=== PATIENT | male | born 1965 | race Caucasian/White ===

== ENCOUNTER 2018-05-14 17:00 | Inpatient (IN) ==
[2018-05-14] MEDS ORDERED: Sodium Chloride 0.9% 1,000 ML PRIMARY IV ONE ×2 (17:35→20:26)
[2018-05-14] MEDS ORDERED: ONDANSETRON 4 MG/2 ML VIAL IVP ONE (17:35)
[2018-05-14] MEDS ORDERED: HYDROmorphone 2 MG/1 ML IVP ONE (17:37)
[2018-05-14 17:42] LABS: BASOPHILS # (AUTO) 0.02 10*3/UL; BASOPHILS % (AUTO) 0.1 % (0-1); EOSINOPHILS # (AUTO) 0.03 10*3/UL; EOSINOPHILS % (AUTO) 0.2 % (0-8); Hematocrit [HCT] 42.5 % (42.0-52.0); Hemoglobin [HGB] 15.6 g/dL (14.0-18.0); LYMPHOCYTES # (AUTO) 1.27 10*3/uL; MEAN CORPUSCULAR HEMOGLOBIN 29.9 PG (27-31); MEAN CORPUSCULAR HGB CONC 36.7 g/dL (33-37); MEAN CORPUSCULAR VOLUME 81.6 FL (80-90); MEAN PLATELET VOLUME 10.6 FL (7.4-12.2); MONOCYTES # (AUTO) 1.81 10*3/UL (0.3-0.8); MONOCYTES % (AUTO) 9.8 % (5-15); NEUTROPHILS # (AUTO) 15.36 10*3/UL; NEUTROPHILS % (AUTO) 82.7 % (50-80); RED BLOOD COUNT 5.21 10^6/uL (4.70-6.10)
[2018-05-14 17:48] LABS: BLOOD UREA NITROGEN 20 mg/dL (7-22); LIPASE 849 IU/L (23-300); SERUM ALBUMIN 4.5 g/dL (3.5-4.8)
[2018-05-14 17:49] LABS: PLATELET MORPHOLOGY COMMENT NORMAL MORPHOLOGY (NORM); RBC MORPHOLOGY COMMENT NORMAL MORPHOLOGY (NORM); WBC MORPHOLOGY COMMENT NORMAL MORPHOLOGY (NORM)
--- NOTE | 2018-05-14 18:22 | EKG ---
[address] [address] Measurements Intervals [place] Rate: 85 P: 27 RI: 178 QRS: 3 QRSD: 125 T: 34 QT: 359 QTc: 401 Interpretive Statements SINUS RHYTHM RIGHT BUNDLE BRANCH BLOCK [120+ ms QRS DURATION, UPRIGHT V1, 40+ ms S IN I/aVL/V4/V5/V6] No previous ECG available for comparison Electronically Signed On 05-15-18 11:00:47 MDT by Cortes Thomas MD [email or web address]
[2018-05-14 18:28] LABS: VENOUS PH 7.37 (7.32-7.42)
--- NOTE | 2018-05-14 18:43 | DI ---
CT ABDOMEN SCAN WITH IV CONTRAST, 05/14/2018 5:36 PM : Clinical History: Abdominal pain. Previous Exam: None at this facility. IV Contrast: 75 mL of Isovue 300. Oral Contrast: No oral contrast ordered. Rectal Contrast: No rectal contrast ordered. Lungs: No infiltrate or effusion. Liver: Diffuse low-density in the liver consistent with fatty infiltration. Gallbladder: Grossly normal. Adrenal Glands: Normal. Spleen: Normal. Pancreas: There is moderate disproportional enlargement of the head of the pancreas compared to the n alexys, body, and tail. In addition, there is peripancreatic subtle inflammatory/infiltrative change in the region of the head. The remainder of the pancreas shows no similar inflammatory/infiltrative wiggins ge. Overall, the pancreas shows diffuse fatty infiltration. The duodenum also appears slightly inflam ed. The differential would be between focal acute pancreatitis involving the head versus a process in the duodenum that is secondarily involving the head of the pancreas. Kidneys: Normal size, shape, position and contour. 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 No right hydronephrosis or hydroureter. No renal or ure teral calculi. Masses: None. Lymph Nodes: Normal. Ascites: No ascites. Free Air: None. Spine: Degenerative changes of the lower thoracic and lumbar spine without evidence of metastatic dis ease. READIN. Subtle focal enlargement of the pancreatic head with peripancreatic inflammatory/infiltrative [place] nge confined to this area only. There is diffuse fatty infiltration of the pancreas. The area of the duodenum associated with the pancreatic head shows some similar inflammatory/infiltrative change. The differential would be first that this patient has focal pancreatitis with reactive change involving the duodenum. The second choice would be there is an inflammatory process in the duodenum such as an ulcer that is causing focal pancreatitis. This should be correlated with laboratory values. 2. Fatty infiltration of the liver. CT PELVIS SCAN WITH IV CONTRAST, 05/14/2018 5:36 PM: Clinical History: See above. Previous Exam: None at this facility. Contrast: Same bolus used for CT scans of the abdomen. Masses: No masses or enhancing lesions. Ascites: None. Free Air: None. Lymph Nodes: No adenopathy. Appendix: Normal. Small Bowel: Normal small bowel, terminal ileum, and ileocecal valve. Colon: Normal. Bladder: Normal. Hernias: None. Bony Pelvis: Sacrum, pelvic bones, and hips show degenerative arthritic change without evidence of me tastatic disease. READING: Normal CT scan of the pelvis with IV contrast.
--- NOTE | 2018-05-14 19:04 | PDOC ---
Abdomen/Flank HPI - General Chief Complaint: Abdomen Pain Stated Complaint: abd pain Date Seen by Provider: 05/14/18 Time Seen by Provider: 17:25 Source: POSITIVE: Patient, Spouse Exam Limitations: POSITIVE: No limitations Nurse's Notes Reviewed & Considered: Yes - History of Present Illness Initial Comments: The patient is a 52-year-old male. He presents to the emergency room with a 30 hour history of upper abdominal pain radiating into his back. He states he's not had a bowel movement in over 24 hours. He complains of nausea and "dry heaves ". He states he onset was fairly abrupt. No diarrhea, melena, hematochezia, hematemesis, dysuria or hematuria. He has no history of previous abdominal surgery. He takes atorvastatin for hypercholesterolemia and metformin for diabetes and lisinopril for hypertension. No known fevers or chills Body Location Affected: REPORTS: Abdomen Timing: REPORTS: Abrupt, Getting Worse Duration: >24 hours (30 hours) Severity: Moderate Quality: REPORTS: "Pain" Abdominal Pain Onset Location: REPORTS: RUQ, LUQ, Epigastric Abdominal Pain Radiation: REPORTS: Back Context: REPORTS: None Modifying Factors: improves with: Nothing Associated Symptoms: REPORTS: Back pain, Vomiting Similar Symptoms Previously: No Recent Care Received: REPORTS: Denies Any Prior Injuries Related to Current Complaint?: No - Patient Home Medications Home Medications: Home Medications Lisinopril 1 tab PO DAILY #30 tab 03/21/15 Blood Sugar Diagnostic [Blood Glucose Test Strip] 1 ea MC BID #1 box 03/22/15 Blood-Glucose Meter [Blood Glucose Meter] 1 ea MC ONCE #1 ea 03/22/15 Lancets 1 ea MC BID #1 box 03/22/15 Metformin HCl 2 tab PO BID #120 tab 05/15/16 Aspirin [Aspir 81] 81 mg PO DAILY 05/14/18 Atorvastatin Calcium 40 mg PO DAILY 05/14/18 - Patient Allergies Allergies/Adverse Reactions: Allergies Allergy/AdvReac Type Severity Reaction Status Date / Time No Known Drug Allergies Allergy Verified 05/14/18 16:15 Past Medical History - heen HEENT History: Denies History Cardiovascular History: Hyperlipidemia Respiratory History: Sleep Apnea Gastrointestinal History: Denies History Genitourinary History: Denies History Endocrine History: Type 2 Diabetes (oral) Musculoskeletal History: Denies History Prosthesis or Implant: No Neurological History: Denies History Blood Disorders: Denies History Psychiatric History: Denies History History of Sexually Transmitted Diseases: No Male Reproductive History: Denies History Cancer History: Denies History In Past Year Been Physically Harmed or Verbally Threatened: No History of MDRO: No History of Other Communicable Diseases: No Tobacco Use: Never Smoker In the Past 12 Months, Have Used or Abuse Any Substance: None Previous Surgical History: No Past Medical History Reviewed: Reviewed - No Changes ROS - Limitations ROS Limitations: No Limitations Constitution: REPORTS: Denies Symptoms Cardiovascular: REPORTS: Denies Cardiac Symptoms Respiratory: REPORTS: Denies Resp Symptoms Neurological: REPORTS: Denies Neuro Symptoms Gastrointestinal: REPORTS: Abdominal Pain, Nausea, Vomitting Endocrine: REPORTS: Denies Symptoms Musculoskeletal: REPORTS: Denies MS Symptoms Genitourinary: REPORTS: Denies Symptoms Eyes: REPORTS: Denies Symptoms ENT: REPORTS: Denies Symptoms Skin: REPORTS: Denies Skin Symptoms Lympathic: REPORTS: Denies Lympathic Symptoms Immunologic: POSITIVE: Denies Symptoms Psychiatric: POSITIVE: Denies Psych Symptoms Abdominal/Flank Pain PE - General Appearance General Appearance: POSITIVE: Alert, Cooperative, No Evidence of Trauma, Moderate Distress (Due to upper abdominal pain). NEGATIVE: No Acute Distress - HEENT HEENT: POSITIVE: Head Inspection Nml, Eyes Inspection Nml, Ears Inspection Nml, Nose Inspection Nml, Oral/Dental Inspect. Nml, Pharynx Inspect. Nml, PERRL, EOMI - Neck Neck: POSITIVE: Normal Inspection, No Apparent Injury - Respiratory Respiratory: POSITIVE: No Respiratory Distress, Breath Sounds Normal, Chest Non-Tender - Cardiovascular Cardiovascular: POSITIVE: Regular Rate and Rhythm, Heart Sounds Normal, Equal Pulses, Strong Pulses Peripheral Pulses: Radial (R): 2+, Radial (L): 2+ - Chest Chest: POSITIVE: Non Tender - Abdomen Abdomen: Soft: (All Quadrants), Normal Bowel Sounds: (All Quadrants), Denies Tenderness: (RLQ), (LLQ), No Splenomegaly: (All Quadrants), No Hepatomegaly: (All Quadrants), No Guarding: (All Quadrants), No Rebound: (All Quadrants), No Palpable Pulse: (All Quadrants), No Palpabale Mass: (All Quadrants), No Distention: (All Quadrants), No Rigidity: (All Quadrants), Tenderness Noted: (RUQ), (LUQ) - Back Back: POSITIVE: Normal Inspection. NEGATIVE: CVA Tenderness (R), CVA Tenderness (L) - Skin Skin: POSITIVE: Intact, Normal For Race, Warm, Dry, No Rash - Extremities Extremity: Non-Tender: (All Extremities), Normal ROM: (All Extremities), Normal Inspection: (All Extremities) - Neurological Neurological: POSITIVE: Affect Apporpriate, Oriented X3, first assist Normal As Tested, Motor Normal, Sensation Normal - Psychological Psychiatric: POSITIVE: Affect Appropriate, Mood Appropriate Images - Complete Complete: 1 - Area of abdominal pain Abdomen Progress - Results Reviewed by me Xrays/CTs/US Reviewed by me: Yes Discussed with Radiologist: Yes Radiology Findings: Compatible with pancreatitis CBC and BMP: 05/14/18 17:35 05/14/18 17:35 Lab Results:: Laboratory Results 05/14/18 05/14/18 05/14/18 17:35 17:35 17:35 WBC 18.54 H RBC 5.21 Hgb 15.6 Hct 42.5 MCV 81.6 MCH 29.9 MCHC 36.7 RDW Std Deviation 40.7 RDW Coeff of Reagan 13.9 Plt Count 256 MPV 10.6 Immature Gran % (Auto) 0.3 Neut % (Auto) 82.7 H Lymph % (Auto) 6.9 L Holt % (Auto) 9.8 Eos % (Auto) 0.2 Baso % (Auto) 0.1 Immature Gran # (Auto) 0.05 Neut # (Auto) 15.36 Lymph # (Auto) 1.27 Holt # (Auto) 1.81 H Eos # (Auto) 0.03 Baso # (Auto) 0.02 WBC Morphology Comment Normal morphology Plt Morphology Comment Normal morphology RBC Morph Comment Normal morphology VBG pH VBG pCO2 VBG HCO3 VBG Base Excess Sodium 139 Potassium 4.0 Chloride 103 Carbon Dioxide 24 Anion Gap 12 BUN 20 Creatinine 1.0 Estimated GFR > 60 BUN/Creatinine Ratio 20.00 Glucose 139 H Calculated Osmolality 292.0 Calcium 9.9 Total Bilirubin 3.1 H AST 45 ALT 28 Alkaline Phosphatase 92 Troponin I < 0.012 Total Protein 7.9 Albumin 4.5 Globulin 3.4 Albumin/Globulin Ratio 1.30 Amylase 209 H Lipase 849 H 05/14/18 18:22 WBC RBC Hgb Hct MCV MCH MCHC RDW Std Deviation RDW Coeff of Reagan Plt Count MPV Immature Gran % (Auto) Neut % (Auto) Lymph % (Auto) Holt % (Auto) Eos % (Auto) Baso % (Auto) Immature Gran # (Auto) Neut # (Auto) Lymph # (Auto) Holt # (Auto) Eos # (Auto) Baso # (Auto) WBC Morphology Comment Plt Morphology Comment RBC Morph Comment VBG pH 7.37 VBG pCO2 43 L VBG HCO3 25 VBG Base Excess -1 Sodium Potassium Chloride Carbon Dioxide Anion Gap BUN Creatinine Estimated GFR BUN/Creatinine Ratio Glucose Calculated Osmolality Calcium Total Bilirubin AST ALT Alkaline Phosphatase Troponin I Total Protein Albumin Globulin Albumin/Globulin Ratio Amylase Lipase EKG Interpreted/Reviewed By Me:: Yes (normal sinus rhythm; T-wave inversions in V1 and V2 and V3) EKG Interpretation:: POSITIVE: Normal Sinus Rhythm, Normal Rate, Normal Intervals, Normal [place], Normal QRS. NEGATIVE: Normal ST/T (T-wave inversions V1 and V2 and V3) - Patient's Progress Pain Medication Addressed: POSITIVE: Yes (Patient given 2 mg of Dilaudid IV, 4 mg of Zofran IV and a liter of saline and patient feels considerably better afterward) School/Work Release Addressed: POSITIVE: Not Applicable Re-examine Time: 18:50 Re-Examine Comment: Results of laboratory and radiological studies discussed with patient and his . Advised that he has pancreatitis. Patient received a liter of normal saline, 2 mg of Dilaudid and 4 mg of Zofran in the emergency room and patient states he feels much better. Case discussed with Dr. Wolfe, hospitalist, and is admitted for further evaluation and treatment. Status: POSITIVE: Improved, Re-Examined - Consult Consult (If Yes, Name of Consulting MD & Time Called): Yes (Dr. De La Rosa, hospitalist, [phone]) Consulting MD will see pt:: POSITIVE: [facility] [place] Admit Counseled: POSITIVE: Patient, Family, RE: Lab Results, RE: Radiology Results, RE: DX, RE: Need for F/U Patient Care Time - Estimated PCT Patient Care Time (In Minutes): 45 Vital Signs - Recent Vital Signs Vital Signs: Vital Signs (Last 8 hours) Temp Pulse Resp BP Pulse Ox 05/14/18 18:37 83 98 05/14/18 17:01 99.7 F H 85 18 157/88 94 - VS Reviewed Vital Signs Reviewed: Yes Discharge Clinical Impression: Pancreatitis Discharge Disposition: Admit to Inpatient Condition: Fair Follow Up With: NONE,NONE [Primary Care Provider] - Date Decision to Admit to Inpatient: 05/14/18 Time Decision to Admit to Inpatient: 18:50
[2018-05-14] MEDS ORDERED: DEXTROSE 50%-WATER SYRINGE 50 ML SYRINGE IVP PRN (19:39)
[2018-05-14] MEDS ORDERED: DEXTROSE 31 GM GEL PO PRN (19:39)
[2018-05-14] MEDS ORDERED: DOCUSATE 100 MG CAPSULE PO PRN (19:39)
[2018-05-14] MEDS ORDERED: LIDOCAINE W/ SODIUM BICARB 0.5 ML SYR SUBD PRN (19:39)
[2018-05-14] MEDS ORDERED: PANTOPRAZOLE IV 40 MG VIAL IVP ONE (19:39)
[2018-05-14] MEDS ORDERED: Insulin Sliding Scale Protocol SUBCUT PRN (19:39)
[2018-05-14] MEDS ORDERED: ACETAMINOPHEN 325 MG TABLET PO PRN (19:39)
[2018-05-14] MEDS ORDERED: CALCIUM CARBONATE 500 MG (TUMS) CHEWABLE TABLET PO PRN (19:39)
[2018-05-14] MEDS ORDERED: Glucagon Inj Vial 1 MG/ML VIAL IM PRN (19:39)
[2018-05-14 20:06] LABS: CHOL/HDL RATIO 3.32 RATIO (0-4.0)
[2018-05-14] MEDS: Sodium Chloride 0.9% 1,000 ML PRIMARY IV SCH (20:32)
--- NOTE | 2018-05-14 20:34 | PDOC ---
HPI - History of Present Illness Date of Service: 05/14/18 Time of Service: 20:27 Chief Complaint: abdominal pain History of Present Illness: This is a 52 year old male with DMII, well controlled, hypercholesterolemia, and obesity, who presents with epigastric pain that radiated around to the back. Pain was severe, associated with chills, nausea and vomiting, and dry heaving. No complaints of chest pain. He has statin therapy for high cholesterol. The patient does not drink alcohol. He had a "grossly normal" gall bladder on CT scan, but no ultrasound has been done to this point. Lipase was elevated. CT scan was notable for pancreatitis in the head of the pancreas, with inflammatory changes at the duodenum. Dilaudid helped the pain in the emergency room. There seemed to be no exacerbating factors the patient could identify. The patient takes NSAIDs habitually for shoulder pain, 600 mg every night. Past Medical History Medical History: 1. DMII. 2. obesity. 3. hypercholesterolemia. 4. HTN Surgical History: no prior surgeries Pertinent Family History: Significant for diabetes. Past Social History: does not smoke or drink alcohol. works in the [employer] for 30 years, four healthy children. Tobacco Use: Never Smoker In the Past 12 Months, Have Used or Abuse Any of the Following Substance: None Alcohol Use: None Medication / Allergies Home Medications: Home Medications 3 Medication Instructions Recorded Confirmed Type RX: Lisinopril 1 tab PO DAILY #30 tab 03/21/15 05/14/18 History Blood Sugar Diagnostic [Blood 1 ea BID #1 box 03/22/15 05/14/18 History Glucose Test Strip] Blood-Glucose Meter [Blood Glucose 1 ea ONCE #1 ea 03/22/15 05/14/18 History Meter] RX: Lancets 1 ea MC BID #1 box 03/22/15 05/14/18 History RX: Metformin HCl 2 tab PO BID #120 tab 05/15/16 05/14/18 Rx Aspirin [Aspir 81] 81 mg PO DAILY 05/14/18 05/14/18 History RX: Atorvastatin Calcium 40 mg PO DAILY 05/14/18 05/14/18 History Allergies/Adverse Reactions: Allergies Allergy/AdvReac Type Severity Reaction Status Date / Time No Known Drug Allergies Allergy Verified 05/14/18 16:15 Review of Systems - Review of Systems All Systems: Reviewed & No Additional Complaints Except as Stated (I did a 12 point review systems and it was negative other than that discussed below and in the history of present illness.) Exam - Vitals Vital Signs: Vital Signs Temperature 98.3 F Temperature Source Temporal Artery Scan Pulse Rate [Pulse Oximeter] 92 Respiratory Rate 20 Blood Pressure [Left Arm] 150/78 Pulse Ox 91 Oxygen Delivery Method Room Air Height 6 ft 1 in Weight 295 lb 6.4 oz - General General Appearance: No Acute Distress, Cooperative - Head Head Exam: Normal Inspection, Normocephalic, Atraumatic - Eye Eye Exam: POSITIVE: No Scleral Icterus - ENT ENT Exam: POSITIVE: Mucous Membranes Moist - Neck Neck Exam: Normal Inspection, No Tenderness, No Lymphadenopathy, No Thyromegaly, JVP is not Raised - Respiratory Respiratory Exam: POSITIVE: Clear to Auscultation - Bilaterally, Breathing Non Labored, Normal to Percussion and Palpation - Cardiovascular Cardiovascular Exam: POSITIVE: RRR, No Murmur, No Clicks, No Gallops, No Rubs, No JVD - GI/Abdominal GI/Abdominal Exam: POSITIVE: Normal Bowel Sounds, Non Tender, Non Distended, Soft Additional GI/Abdominal Exam Details: not tender at the time of the exam due to pain medications per patient. - Rectal Rectal Exam: POSITIVE: Deferred - External Exam: POSITIVE: Deferred Exam: POSITIVE: Deferred - Extremities Extremities Exam: POSITIVE: No Clubbing Present, No Edema Present, No Cyanosis Present - Back Back Exam: POSITIVE: No CVA Tenderness - Neurological Neurological Exam: POSITIVE: Alert, Oriented x 3, No Facial Droop, Speech Intact / Clear, Moves All Extremities Equally - Psychiatric Psychiatric Exam: POSITIVE: Normal Affect, Normal Mood Results - Labs CBC and BMP: 05/14/18 17:35 05/14/18 17:35 Additional Lab Results: Laboratory Results 05/14/18 05/14/18 05/14/18 17:35 17:35 17:35 WBC 18.54 H RBC 5.21 Hgb 15.6 Hct 42.5 MCV 81.6 MCH 29.9 MCHC 36.7 RDW Std Deviation 40.7 RDW Coeff of Reagan 13.9 Plt Count 256 MPV 10.6 Immature Gran % (Auto) 0.3 Neut % (Auto) 82.7 H Lymph % (Auto) 6.9 L [place] % (Auto) 9.8 Eos % (Auto) 0.2 Baso % (Auto) 0.1 Immature Gran # (Auto) 0.05 Neut # (Auto) 15.36 Lymph # (Auto) 1.27 [place] # (Auto) 1.81 H Eos # (Auto) 0.03 Baso # (Auto) 0.02 WBC Morphology Comment Normal morphology Plt Morphology Comment Normal morphology RBC Morph Comment Normal morphology VBG pH VBG pCO2 VBG HCO3 VBG Base Excess Sodium 139 Potassium 4.0 Chloride 103 Carbon Dioxide 24 Anion Gap 12 BUN 20 Creatinine 1.0 Estimated GFR > 60 BUN/Creatinine Ratio 20.00 Glucose 139 H Calculated Osmolality 292.0 Calcium 9.9 Total Bilirubin 3.1 H AST 45 ALT 28 Alkaline Phosphatase 92 Troponin I < 0.012 Total Protein 7.9 Albumin 4.5 Globulin 3.4 Albumin/Globulin Ratio 1.30 Amylase 209 H Lipase 849 H 05/14/18 18:22 WBC RBC Hgb Hct MCV MCH MCHC RDW Std Deviation RDW Coeff of Reagan Plt Count MPV Immature Gran % (Auto) Neut % (Auto) Lymph % (Auto) [place] % (Auto) Eos % (Auto) Baso % (Auto) Immature Gran # (Auto) Neut # (Auto) Lymph # (Auto) [place] # (Auto) Eos # (Auto) Baso # (Auto) WBC Morphology Comment Plt Morphology Comment RBC Morph Comment VBG pH 7.37 VBG pCO2 43 L VBG HCO3 25 VBG Base Excess -1 Sodium Potassium Chloride Carbon Dioxide Anion Gap BUN Creatinine Estimated GFR BUN/Creatinine Ratio Glucose Calculated Osmolality Calcium Total Bilirubin AST ALT Alkaline Phosphatase Troponin I Total Protein Albumin Globulin Albumin/Globulin Ratio Amylase Lipase - EKG Data -: EKG Interpreted by Me Rate: Normal EKG Shows Normal: Sinus Rhythm - EKG Data EKG Interpretation: Other (t wave inversions noted, right bundle branch block) - Imaging Status: Image Reviewed by Me (my view of CT scan shows head of pancreas inflamed. there is a larger ureter in the left kidney proximal to the bladder at the nephroureter junction) Assessment and Plan - Patient Problems (1) Pancreatitis Current Visit: Yes Status: Acute Code(s): K85.90 - Acute pancreatitis without necrosis or infection, unspecified Qualifiers: Chronicity: acute Pancreatitis type: unspecified pancreatitis type Acute pancreatitis complication: no infection or necrosis Qualified Code(s): K85.90 - Acute pancreatitis without necrosis or infection, unspecified (2) DMII (diabetes mellitus, type 2) Current Visit: Yes Status: Acute Code(s): E11.9 - Type 2 diabetes mellitus without complications Qualifiers: Diabetes mellitus long-term insulin use: without long-term use Diabetes mellitus complication status: without complication Qualified Code(s): E11.9 - Type 2 diabetes mellitus without complications (3) Hypercholesterolemia Current Visit: Yes Status: Acute Code(s): E78.00 - Pure hypercholesterolemia, unspecified (4) HTN (hypertension) Current Visit: Yes Status: Acute Code(s): I10 - Essential (primary) hypertension Qualifiers: Hypertension type: essential hypertension Qualified Code(s): I10 - Essential (primary) hypertension - Assessment / Plan Additional Assessment/Plan Details: admit the patient IV narcotics and antiemetics NPO, may consider ice chips if patient desires do studies to make sure gall bladder is not the cause--I have ordered an ultraso und to look for stones and look at CBD check IgE level check lipase in AM check lipids LDH level now calculate Karyna's criteria on admission if at all possible will start PPI with findings of duodenal inflammation; consult surgery--patient may need an EGD in the future stop statin--could be the cause, the patient should not go back on statin therapy no further NSAIDs may need MRI of abdomen, but cannot get over weekend. (look at pancreatic ducts, look at CBD for potential ducts) plan discussed with patient and and they agree.
[2018-05-14] MEDS: Insulin Lispro Flexpen 300 UNIT/3 ML INSULN.PEN SUBCUT SCH (20:36)
[2018-05-14] MEDS: HYDROmorphone 2 MG/1 ML IVP PRN (20:40)
[2018-05-14] MEDS: ONDANSETRON 4 MG/2 ML VIAL IVP PRN (22:28)
[2018-05-15] MEDS: HYDROmorphone 2 MG/1 ML IVP PRN ×4 (01:22→13:45)
[2018-05-15] MEDS: Sodium Chloride 0.9% 1,000 ML PRIMARY IV SCH ×2 (04:45→13:45)
[2018-05-15 05:16] LABS: Hematocrit [HCT] 41.4 % (42.0-52.0); Hemoglobin [HGB] 14.3 g/dL (14.0-18.0); MEAN CORPUSCULAR HEMOGLOBIN 29.1 PG (27-31); MEAN CORPUSCULAR HGB CONC 34.5 g/dL (33-37); MEAN CORPUSCULAR VOLUME 84.1 FL (80-90); MEAN PLATELET VOLUME 10.5 FL (7.4-12.2); RED BLOOD COUNT 4.92 10^6/uL (4.70-6.10)
[2018-05-15 05:29] LABS: BLOOD UREA NITROGEN 17 mg/dL (7-22); LIPASE 810 IU/L (23-300); SERUM ALBUMIN 3.8 g/dL (3.5-4.8)
[2018-05-15 06:00] LABS: PLATELET MORPHOLOGY COMMENT NORMAL MORPHOLOGY (NORM); RBC MORPHOLOGY COMMENT NORMAL MORPHOLOGY (NORM); WBC MORPHOLOGY COMMENT NORMAL MORPHOLOGY (NORM)
[2018-05-15 06:02] LABS: BAND NEUTROPHILS % 2 % (0-10); BASOPHILS % (MANUAL) 0 % (0-1); EOSINOPHILS % (MANUAL) 1 % (0-8); METAMYELOCYTES % 0 %; MONOCYTES % (MANUAL) 14 % (0-12); MYELOCYTES % 0 %; NEUTROPHILS % (MANUAL) 74 % (50-80); PROMYELOCYTES % 0 %
[2018-05-15] MEDS: Insulin Lispro Flexpen 300 UNIT/3 ML INSULN.PEN SUBCUT SCH ×2 (08:09→11:30)
[2018-05-15] MEDS ORDERED: PANTOPRAZOLE IV 40 MG VIAL IVP SCH (09:00)
--- NOTE | 2018-05-15 09:58 | DI ---
EXAM: US Abdomen Complete CLINICAL HISTORY: Upper abdominal pain. Pancreatitis, question CBD obstruction TECHNIQUE: Real-time ultrasound of the abdomen (complete) with image documentation. COMPARISON: CT of the abdomen and pelvis dated 05/14/18 FINDINGS: Liver: Liver diameter 16.6 cm. No visible parenchymal lesions. No intrahepatic biliary ductal dilatation. Diffusely echogenic hepatic parenchyma. Gallbladder: Contracted, limiting evaluation. No gallstones. No wall thickening. No pericholecystic fluid. Common bile duct: Common bile duct diameter 5 mm, within normal limits. Pancreas: Unremarkable as visualized. Pancreatic body and tail are obscured by bowel gas. Please note that ultrasound is relatively insensitive for detection of interstitial pancreatitis. Kidneys: Right kidney length of 12.5 cm. Left kidney length of 12.8 cm. Normal cortical thickness. No visible stones. No hydronephrosis. Left renal pelvic fullness with 2.2 x 1.8 cm peripelvic cyst. Spleen: Spleen length of 13 cm, borderline enlarged. Aorta: Obscured by overlying bowel gas. Inferior vena cava: Visualized proximal portions appear unremarkable. Distally obscured by bowel gas. IMPRESSION: 1. Normal diameter of the common bile duct, measuring 5 mm. 2. Diffusely echogenic liver, suggesting fatty infiltration. 3. Left renal peripelvic cysts measuring up to 2.2 cm.
--- NOTE | 2018-05-15 10:40 | DCSUMMARY ---
Hospitalization Summary Admit Date: 05/14/2018 Discharge Date: 05/15/18 Primary Diagnosis:: Pancreatitis Hospital Course: This is a very pleasant 52 YO male with DMII, hypercholesterolemia, and obestiy who presented with signs and symptoms of pancreatitis. He was found to have inflammatory changes in the head of the pancreas and the duodenum. The patient was admitted, placed on IV fluids, pain medications and antiemetics and an ultrasound was ordered. The patient had a total bilirubin that was 3.1, but liver enzymes were normal. Ultrasound ended up showing no gallbladder wall thickening, no gallstones, and the common bile duct was at about 5 mm. Given his age, that would be a normal common bile duct diameter. However, the patient has had elevated white blood cell counts, he came in with a temperature of 99.7F, and his total bilirubin went up to 5.9 along with increase in ALT and AST this morning. His lipase remains about the same. I do not have the ability to do an MRI scan of the abdomen to rule out common bile duct stone definitively. I discussed the case with the Dr. [place]endez and [place] [facility] [place] [facility] we all agreed that given the potentialities of developing ascending cholangitis, a delay in workup here for diagnosis, that it would be best to transfer the patient for abdominal MRI scan and possible ERCP showed a common bile duct sludge or stone be noted on MRI scan. In addition it may be that the patient will need an EGD to look at this duodenal area. Currently I had the patient on Protonix, narcotics for pain, antiemetics for nausea, and IV fluids. I am managing his diabetes with insulin on a correction dose scale. His metformin has been held. We pushed images up to [place]. Today, the patient does have epigastric pain although he tries to minimize it. He grimaces on exam. No chest pain and no shortness breath. The patient and his are in agreement with the transfer. Potential causes for pancreatitis that were ruled out include hypertriglyceridemia as his triglycerides are 64. He does not drink alcohol. It is a mixed picture in terms of whether this could've been gallbladder related at this point. Could be his atorvastatin which has been stopped and I told him to discontinue that. In addition I told him to stop nonsteroidal anti- inflammatory drugs. Assessment and Plan: 1. As per discharge assessments noted 2. Disposition: [place] [facility] [place]. Condition on discharge, stable and improved. The patient has been stabilized to the best of our ability, but if there is obstructive jaundice, he could certainly deteriorate. 4. Diet: Nothing by mouth 5. Activities: resume normal activities 6. Follow-Up: 1. We will have the patient see Dr. Shepard here as an outpatient 7. Medications at the Time of Discharge: Home Medications Medication Instructions Recorded Confirmed Type Lisinopril 1 tab PO DAILY #30 tab 03/21/15 05/14/18 History Blood Sugar Diagnostic [Blood 1 ea MC BID #1 box 03/22/15 05/14/18 History Glucose Test Strip] Blood-Glucose Meter [Blood Glucose 1 ea MC ONCE #1 ea 03/22/15 05/14/18 History Meter] Lancets 1 ea MC BID #1 box 03/22/15 05/14/18 History Metformin HCl 2 tab PO BID #120 tab 05/15/16 05/14/18 Rx Aspirin [Aspir 81] 81 mg PO DAILY 05/14/18 05/14/18 History Atorvastatin Calcium 40 mg PO DAILY 05/14/18 05/14/18 History Active Medications Generic Name Dose Route Start Last Admin Trade Name Freq PRN Reason Stop Dose Admin Acetaminophen 650 mg 05/14/18 19:39 05/14/18 22:32 Tylenol PO 650 mg Q6H PRN Administration Pain or Fever Calcium Carbonate 1 - 2 tab 05/14/18 19:39 Tums PO Q6H PRN Heartburn Dextrose 30 - 40 ml 05/14/18 19:39 Dextrose 50% Inj IVP Q15M PRN BG < 70 unable to take oral Docusate Sodium 100 mg 05/14/18 19:39 Colace PO BID PRN Constipation Glucagon 1 mg 05/14/18 19:39 Glucagen IM ONCE PRN BG < 70 NPO & NO IV Glucose 15 - 20 gm 05/14/18 19:39 Insta-Glucose Gel PO Q15M PRN BG < 70 Hydromorphone HCl 1 mg 05/14/18 19:39 05/15/18 08:10 Dilaudid Inj IVP 1 mg Q3H PRN Administration Pain Sodium Chloride 1,000 mls @ 125 mls/hr 05/14/18 19:39 05/15/18 04:45 Normal Saline PRIMARY IV 125 mls/hr .Q8H VINCENT Administration Sodium Chloride 25 mls @ 200 mls/hr 05/14/18 19:39 Normal Saline 0.9% IV .Post Infusion PRN No Primary IV for Flush ONLY Insulin Human Lispro 0 - 14 unit 05/14/18 21:00 05/15/18 08:09 Humalog Flexpen Inj SUBCUT Not Given AC HS VINCENT Protocol Lidocaine HCl 0.5 ml 05/14/18 19:39 Lidocaine Buffered Inj SUBD ONCE PRN IV Starts Ondansetron HCl 4 mg 05/14/18 19:39 05/14/18 22:28 Zofran Inj IVP 4 mg Q4H PRN Administration NAUSEA / VOMITING Pantoprazole Sodium 40 mg 05/15/18 09:00 05/15/18 08:10 Protonix Inj IVP 40 mg DAILY VINCENT Administration 8. Time, care, counseling and coordination of care for this discharge is greater than 30 minutes. Exam - Vitals Vital Signs: Vital Signs Temperature 97.5 F Temperature Source Temporal Artery Scan Pulse Rate [Pulse Oximeter] 71 Pulse Rate 69 Respiratory Rate 20 Blood Pressure [Left Arm] 150/82 Blood Pressure 144/85 Pulse Ox 97 Oxygen Flow Rate 2 Oxygen Delivery Method Room Air Height 6 ft 1 in Weight 295 lb 6.4 oz - General General Appearance: No Acute Distress, Cooperative - Eye Eye Exam: POSITIVE: No Scleral Icterus - ENT ENT Exam: POSITIVE: Mucous Membranes Moist - Neck Neck Exam: JVP is not Raised - Respiratory Respiratory Exam: POSITIVE: Clear to Auscultation - Bilaterally, Breathing Non Labored - Cardiovascular Cardiovascular Exam: POSITIVE: RRR, No Murmur, No Clicks, No Gallops, No Rubs, No JVD - GI/Abdominal GI/Abdominal Exam: POSITIVE: Normal Bowel Sounds, Non Distended, Soft Additional GI/Abdominal Exam Details: Epigastric tenderness noted - Extremities Extremities Exam: POSITIVE: No Clubbing Present, No Edema Present, No Cyanosis Present - Neurological Neurological Exam: POSITIVE: Alert, Oriented x 3, No Facial Droop, Speech Intact / Clear, Moves All Extremities Equally Data Peritnent Studies: Laboratory Results 05/14/18 05/14/18 05/14/18 17:35 17:35 17:35 WBC 18.54 H RBC 5.21 Hgb 15.6 Hct 42.5 MCV 81.6 MCH 29.9 MCHC 36.7 RDW Std Deviation 40.7 RDW Coeff of Reagan 13.9 Plt Count 256 MPV 10.6 Immature Gran % (Auto) 0.3 Neut % (Auto) 82.7 H Lymph % (Auto) 6.9 L Ellis % (Auto) 9.8 Eos % (Auto) 0.2 Baso % (Auto) 0.1 Immature Gran # (Auto) 0.05 Neut # (Auto) 15.36 Lymph # (Auto) 1.27 Ellis # (Auto) 1.81 H Eos # (Auto) 0.03 Baso # (Auto) 0.02 Neutrophils % (Manual) Band Neutrophils % Lymphocytes % (Manual) Monocytes % (Manual) Eosinophils % (Manual) Basophils % (Manual) Metamyelocytes % Myelocytes % Promyelocytes % Blast Cells WBC Morphology Comment Normal morphology Plt Morphology Comment Normal morphology RBC Morph Comment Normal morphology VBG pH VBG pCO2 VBG HCO3 VBG Base Excess Sodium 139 Potassium 4.0 Chloride 103 Carbon Dioxide 24 Anion Gap 12 BUN 20 Creatinine 1.0 Estimated GFR > 60 BUN/Creatinine Ratio 20.00 Glucose 139 H Calculated Osmolality 292.0 Calcium 9.9 Total Bilirubin 3.1 H AST 45 ALT 28 Alkaline Phosphatase 92 Lactate Dehydrogenase Troponin I < 0.012 Total Protein 7.9 Albumin 4.5 Globulin 3.4 Albumin/Globulin Ratio 1.30 Triglycerides Cholesterol LDL Cholesterol, Calc VLDL Cholesterol HDL Cholesterol Cholesterol/HDL Ratio Amylase 209 H Lipase 849 H 05/14/18 05/14/18 05/14/18 18:22 19:39 23:55 WBC RBC Hgb Hct MCV MCH MCHC RDW Std Deviation RDW Coeff of Reagan Plt Count MPV Immature Gran % (Auto) Neut % (Auto) Lymph % (Auto) Ellis % (Auto) Eos % (Auto) Baso % (Auto) Immature Gran # (Auto) Neut # (Auto) Lymph # (Auto) Ellis # (Auto) Eos # (Auto) Baso # (Auto) Neutrophils % (Manual) Band Neutrophils % Lymphocytes % (Manual) Monocytes % (Manual) Eosinophils % (Manual) Basophils % (Manual) Metamyelocytes % Myelocytes % Promyelocytes % Blast Cells WBC Morphology Comment Plt Morphology Comment RBC Morph Comment VBG pH 7.37 VBG pCO2 43 L VBG HCO3 25 VBG Base Excess -1 Sodium Potassium Chloride Carbon Dioxide Anion Gap BUN Creatinine Estimated GFR BUN/Creatinine Ratio Glucose Calculated Osmolality Calcium Total Bilirubin AST ALT Alkaline Phosphatase Lactate Dehydrogenase 477 Troponin I Total Protein Albumin Globulin Albumin/Globulin Ratio Triglycerides 64 Cholesterol 153 LDL Cholesterol, Calc 94.200 VLDL Cholesterol 12 HDL Cholesterol 46 Cholesterol/HDL Ratio 3.32 Amylase Lipase 05/15/18 05/15/18 04:50 04:50 WBC 15.66 H RBC 4.92 Hgb 14.3 Hct 41.4 L MCV 84.1 MCH 29.1 MCHC 34.5 RDW Std Deviation 43.0 RDW Coeff of Reagan 14.2 Plt Count 216 MPV 10.5 Immature Gran % (Auto) Neut % (Auto) Lymph % (Auto) Ellis % (Auto) Eos % (Auto) Baso % (Auto) Immature Gran # (Auto) Neut # (Auto) Lymph # (Auto) Ellis # (Auto) Eos # (Auto) Baso # (Auto) Neutrophils % (Manual) 74 Band Neutrophils % 2 Lymphocytes % (Manual) 9 L Monocytes % (Manual) 14 H Eosinophils % (Manual) 1 Basophils % (Manual) 0 Metamyelocytes % 0 Myelocytes % 0 Promyelocytes % 0 Blast Cells 0 WBC Morphology Comment Normal morphology Plt Morphology Comment Normal morphology RBC Morph Comment Normal morphology VBG pH VBG pCO2 VBG HCO3 VBG Base Excess Sodium 142 Potassium 4.0 Chloride 104 Carbon Dioxide 30 Anion Gap 8 BUN 17 Creatinine 1.0 Estimated GFR > 60 BUN/Creatinine Ratio 17.00 Glucose 120 H Calculated Osmolality 296.0 H Calcium 8.8 Total Bilirubin 5.9 H AST 59 H ALT 78 H Alkaline Phosphatase 75 Lactate Dehydrogenase Troponin I Total Protein 6.9 Albumin 3.8 Globulin 3.1 Albumin/Globulin Ratio 1.20 L Triglycerides Cholesterol LDL Cholesterol, Calc VLDL Cholesterol HDL Cholesterol Cholesterol/HDL Ratio Amylase Lipase 810 H Procedures: [address] [facility] [facility] [place] [address] PH: DD: [phone] FAX: [phone] ~DIAGNOSTIC IMAGING REPORT~ Patient: TRINIDAD POLO : 1965 Sex: M Age: 52 Exam Name: US Abdomen Complete Exam Date: 05/15/18 Report # : [id number] CPT Code: 56821 EMR/MR #: [id number] Ordering: BREONNA SILVESTRE Admiting: BREONNA SILVESTRE DO Primary: NONE,NONE Attending: BREONNA SILVESTRE DO Signed EXAM: US Abdomen Complete CLINICAL HISTORY: Upper abdominal pain. Pancreatitis, question CBD obstruction TECHNIQUE: Real-time ultrasound of the abdomen (complete) with image documentation. COMPARISON: CT of the abdomen and pelvis dated 05/14/18 FINDINGS: Liver: Liver diameter 16.6 cm. No visible parenchymal lesions. No intrahepatic biliary ductal dilatation. Diffusely echogenic hepatic parenchyma. Gallbladder: Contracted, limiting evaluation. No gallstones. No wall thickening. No pericholecystic fluid. Common bile duct: Common bile duct diameter 5 mm, within normal limits. Pancreas: Unremarkable as visualized. Pancreatic body and tail are obscured by bowel gas. Please note that ultrasound is relatively insensitive for detection of interstitial pancreatitis. Kidneys: Right kidney length of 12.5 cm. Left kidney length of 12.8 cm. Normal cortical thickness. No visible stones. No hydronephrosis. Left renal pelvic fullness with 2.2 x 1.8 cm peripelvic cyst. Spleen: Spleen length of 13 cm, borderline enlarged. Aorta: Obscured by overlying bowel gas. Inferior vena cava: Visualized proximal portions appear unremarkable. Distally obscured by bowel gas. IMPRESSION: 1. Normal diameter of the common bile duct, measuring 5 mm. 2. Diffusely echogenic liver, suggesting fatty infiltration. 3. Left renal peripelvic cysts measuring up to 2.2 cm. Dictated By: Rishi Norwood MD., PHD. Signed By: 05/15/18 0958 Rishi Norwood MD., PHD. [address] Medicine[address] [facility] [place] [address] PH: DD: [phone] FAX: [phone] ~DIAGNOSTIC IMAGING REPORT~ Patient: TRINIDAD POLO : 1965 Sex: M Age: 52 Exam Name: CT Abdomen/Pelvis W Contrast Exam Date: 05/14/18 Report # : [id number] CPT Code: 92668 EMR/MR #: [id number] Ordering: SAYRA COKER Admiting: Primary: NONE,NONE Attending: --------- Signed CT ABDOMEN SCAN WITH IV CONTRAST, 05/14/2018 5:36 PM : Clinical History: Abdominal pain. Previous Exam: None at this facility. IV Contrast: 75 mL of Isovue 300. Oral Contrast: No oral contrast ordered. Rectal Contrast: No rectal contrast ordered. Lungs: No infiltrate or effusion. Liver: Diffuse low-density in the liver consistent with fatty infiltration. Gallbladder: Grossly normal. Adrenal Glands: Normal. Spleen: Normal. Pancreas: There is moderate disproportional enlargement of the head of the pancreas compared to the neck, body, and tail. In addition, there is peripancreatic subtle inflammatory/infiltrative change in the region of the head. The remainder of the pancreas shows no similar inflammatory/infiltrative change. Overall, the pancreas shows diffuse fatty infiltration. The duodenum also appears slightly inflamed. The differential would be between focal acute pancreatitis involving the head versus a process in the duodenum that is secondarily involving the head of the pancreas. Kidneys: Normal size, shape, position and contour. 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 No right hydronephrosis or hydroureter. No renal or ureteral calculi. Masses: None. Lymph Nodes: Normal. Ascites: No ascites. Free Air: None. Spine: Degenerative changes of the lower thoracic and lumbar spine without evidence of metastatic disease. READIN. Subtle focal enlargement of the pancreatic head with peripancreatic inflammatory/infiltrative change confined to this area only. There is diffuse fatty infiltration of the pancreas. The area of the duodenum associated with the pancreatic head shows some similar inflammatory/infiltrative change. The differential would be first that this patient has focal pancreatitis with reactive change involving the duodenum. The second choice would be there is an inflammatory process in the duodenum such as an ulcer that is causing focal pancreatitis. This should be correlated with laboratory values. 2. Fatty infiltration of the liver. CT PELVIS SCAN WITH IV CONTRAST, 05/14/2018 5:36 PM: Clinical History: See above. Previous Exam: None at this facility. Contrast: Same bolus used for CT scans of the abdomen. Masses: No masses or enhancing lesions. Ascites: None. Free Air: None. Lymph Nodes: No adenopathy. Appendix: Normal. Small Bowel: Normal small bowel, terminal ileum, and ileocecal valve. Colon: Normal. Bladder: Normal. Hernias: None. Bony Pelvis: Sacrum, pelvic bones, and hips show degenerative arthritic change without evidence of metastatic disease. READING: Normal CT scan of the pelvis with IV contrast. Dictated By: 05/14/18 1826 CLIFTON HOLDER MD. Signed By: 05/14/18 1843 CLIFTON HOLDER MD. Patient Problems - Patient Problem List (1) Pancreatitis Current Visit: Yes Status: Acute Code(s): K85.90 - Acute pancreatitis without necrosis or infection, unspecified Qualifiers: Chronicity: acute Pancreatitis type: unspecified pancreatitis type Acute pancreatitis complication: no infection or necrosis Qualified Code(s): K85.90 - Acute pancreatitis without necrosis or infection, unspecified Category: Medical (2) DMII (diabetes mellitus, type 2) Current Visit: Yes Status: Acute Code(s): E11.9 - Type 2 diabetes mellitus without complications Qualifiers: Diabetes mellitus intermediate accountant insulin use: without intermediate accountant use Diabetes mellitus complication status: without complication Qualified Code(s): E11.9 - Type 2 diabetes mellitus without complications Category: Medical (3) Hypercholesterolemia Current Visit: Yes Status: Acute Code(s): E78.00 - Pure hypercholesterolemia, unspecified Category: Medical (4) HTN (hypertension) Current Visit: Yes Status: Acute Code(s): I10 - Essential (primary) hypertension Qualifiers: Hypertension type: essential hypertension Qualified Code(s): I10 - Essential (primary) hypertension Category: Medical
[2018-05-15] MEDS ORDERED: HYDROmorphone 2 MG/1 ML IVP ONE (11:18)
[2018-05-15] MEDS: ONDANSETRON 4 MG/2 ML VIAL IVP PRN ×2 (11:25→14:09)
[2018-05-15 14:21] VITALS: BP 145/75; RESP 24; TEMP 97.6; O2SAT 96
== END 2018-05-15 14:25 | disposition short-term general hospital (02) | DRG 440 ==
LOC: ER 17:00 → MED/SURG 18:54
PROVIDERS: ADMIT Family Medicine; ATTEND Family Medicine